=== PATIENT | female | born 1980 | race Caucasian/White ===

== ENCOUNTER → 2016-10-31 | Outpatient (CLI) | payer OTHER | LOC: FIMAGING 07:55 | PROVIDERS: ATTEND Obstetrics & Gynecology | DX: O35.8XX0 Maternal care for other (suspected) fetal abnormality and damage, not applicable or unspecified (principal); O44.42 Low lying placenta NOS or without hemorrhage, second trimester; O34.219 Maternal care for unspecified type scar from previous cesarean delivery; O09.522 Supervision of elderly multigravida, second trimester; O99.282 Endocrine, nutritional and metabolic diseases complicating pregnancy, second trimester; E28.2 Polycystic ovarian syndrome; Z3A.19 19 weeks gestation of pregnancy ==

== ENCOUNTER → 2017-01-09 | Outpatient (CLI) | payer OTHER | LOC: FIMAGING 08:58 | PROVIDERS: ATTEND Obstetrics & Gynecology | DX: O09.523 Supervision of elderly multigravida, third trimester (principal); O34.219 Maternal care for unspecified type scar from previous cesarean delivery; Z3A.29 29 weeks gestation of pregnancy ==

== ENCOUNTER → 2017-02-27 | Outpatient (CLI) | payer OTHER | LOC: FIMAGING 13:00 | PROVIDERS: ATTEND Obstetrics & Gynecology | DX: O36.63X0 Maternal care for excessive fetal growth, third trimester, not applicable or unspecified (principal); O09.523 Supervision of elderly multigravida, third trimester; Z3A.36 36 weeks gestation of pregnancy; Z98.891 History of uterine scar from previous surgery ==